=== PATIENT | male | born 1985 | race Caucasian/White ===

== ENCOUNTER 2019-03-20 14:07 | Outpatient (CLI) | payer MEDICAID | END 2019-03-20 14:08 | disposition critical access hospital (66) | LOC: EMS 14:07 | PROVIDERS: ATTEND Surgery | DX: R10.10 Upper abdominal pain, unspecified (principal); R11.2 Nausea with vomiting, unspecified | CPT/HCPCS: A0425; A0427 ==

== ENCOUNTER 2019-03-20 14:24 | Observation (INO) | payer MEDICAID ==
--- NOTE | 2019-03-20 14:39 | ED Physician Documentation ---
PD HPI ABD PAIN - Stated complaint Stated Complaint: ABD PX - Chief complaint Chief Complaint: Abd Pain - History obtained from History obtained from: Patient - History of Present Illness Timing - onset: How many days ago (4-5) Timing - duration: Days (The patient states he has had epigastric pain over the last for 5 days worsened with eating and improved with some antacids. He had had similar type symptoms mildly in the past before that with some reflux and heartburn occasionally. He states his symptoms were much more consistent the last for 5 days. He had drank some alcohol heavily over the weekend prior to this starting. He denies any regular or daily alcohol use. He is mild caffeine drinker. He does not eat much spicy foods. He had had some decrease in the e pigastric pain and nausea yesterday and then had an abrupt worsening of pain with nausea and feeling of abdominal distention today. He denies any diarrhea. He denies any hematemesis nor melena.) Timing - details: Gradual onset, Still present (much worse today), Waxing and waning Quality: Aching, Sharp, Fullness/distended, Pain Location: Epigastric Radiation: Upper back Improved by: Vomiting, Position (upright) Worsened by: Eating, Palpation. No: Breathing Associated symptoms: Nausea, Vomiting. No: Fever, Hematemesis, Diarrhea, Melena Similar symptoms before: No diagnosis (Has heartburn symptoms intermittently in the past. No formal diagnosis. Uses ranitidine periodically.) Recently seen: Not recently seen Review of Systems Constitutional: denies: Fever, Chills, Myalgias Nose: denies: Rhinorrhea / runny nose, Congestion Throat: denies: Sore throat Cardiac: denies: Chest pain / pressure Respiratory: denies: Cough GI: reports: Abdominal Pain, Abdominal Swelling (today), Nausea, Vomiting. den ies: Diarrhea, Hematemesis, Bloody / black stool : denies: Dysuria, Frequency Neurologic: reports: Generalized weakness. denies: Near syncope, Syncope Endocrine: denies: Weight loss, Easy bruising / bleeding PD PAST MEDICAL HISTORY - Past Medical History Cardiovascular: None Respiratory: None Neuro: None Endocrine/Autoimmune: None - Past Surgical History Past Surgical History: No - Present Medications Home Medications: Ambulatory Orders Medication Instructions Recorded Confirmed No Known Home Medications 03/20/19 03/20/19 - Allergies Allergies/Adverse Reactions: Allergies Allergy/AdvReac Type Severity Reaction Status Date / Time No Known Drug Allergies Allergy Verified 03/20/19 14:29 - Social History Does the pt smoke?: No Does the pt drink ETOH?: Yes ETOH Use: Other (occasional use, not daily/regular) Substance Use and Type: Marijuana PD ED PE NORMAL - Vitals Vital signs reviewed: Yes - General General: Alert and oriented X 3, Well developed/nourished, Other (He is in significant distress with abdominal pain feeling of distention. He is holding an emesis bag with some emesis in it which is slightly bilious in color and does not have any coffee-ground or bloody appearance) - HEENT HEENT: Atraumatic, Moist mucous membranes, Pharynx benign - Neck Neck: Supple, no meningeal sign, No adenopathy - Cardiac Cardiac: RRR, No murmur - Respiratory Respiratory: Clear bilaterally - Abdomen Abdomen: Soft, No organomegaly, Other (His abdomen is moderately distended with marked tenderness in the epigastric area. He is not particularly tender in the right upper quadrant per se. The lower abdomen is nontender. There is some mild percussion tenderness in the upper abdomen. Bowel sounds are present and diminished. He does have emesis in an emesis bag here in the department and it does not have any blood to it.) - Male Male : Deferred - Rectal Rectal: Deferred Results - Vitals Vitals: Vital Signs - 24 hr 03/20/19 03/20/19 14:26 16:53 Temperature 37.3 C Heart Rate 71 59 L Respiratory 14 16 Rate Blood Pressure 164/96 H 178/112 H O2 Saturation 100 100 Oxygen O2 Source Room air - Labs Labs: Laboratory Tests 03/20/19 03/20/19 03/20/19 15:06 15:06 15:06 WBC 10.6 RBC 4.88 Hgb 15.4 Hct 43.6 MCV 89.3 MCH 31.6 H MCHC 35.3 RDW 11.6 L Plt Count 213 MPV 8.8 Neut # (Auto) 9.0 H Lymph # (Auto) 0.9 L [place] # (Auto) 0.5 Eos # (Auto) 0.0 Baso # (Auto) 0.1 Absolute Nucleated RBC 0.00 Nucleated RBC % 0.0 Sodium 139 Potassium 3.4 L Chloride 99 L Carbon Dioxide 23 Anion Gap 17.0 H BUN 11 Creatinine 1.0 Estimated GFR (MDRD) 87 L Glucose 140 H Lactic Acid 1.8 Calcium 9.1 Magnesium 2.1 Total Bilirubin 1.5 H AST 41 ALT 47 Alkaline Phosphatase 63 Total Protein 7.4 Albumin 4.8 Globulin 2.6 Albumin/Globulin Ratio 1.8 Lipase 580 H Ethyl Alcohol < 5.0 - Rads (name of study) abd CT Radiology: Prelim report reviewed (Pancreatic inflammation. No signs of gallbladder abnormality. No free air or free fluid.), See rad report PD MEDICAL DECISION MAKING - ED course Complexity details: considered differential (He denies regular alcohol use at this time. He had binge drinking about 5 days ago with symptom onset 4 days ago that sounds consistent with gastritis and pancreatitis. No perforation or free air or free fluid on CT scan. He is having considerable pain and persistent nausea. His lipase is significantly elevated. He will need hospitalization for ongoing treatment), d/w patient Departure - Departure Disposition: ED Place in Observation Clinical Impression: Abdominal pain Qualifiers: Abdominal location: epigastric Qualified Code(s): R10.13 - Epigastric pain Vomiting Qualifiers: Vomiting type: unspecified Vomiting Intractability: non-intractable Nausea presence: with nausea Qualified Code(s): R11.2 - Nausea with vomiting, unspecified Gastritis Qualifiers: Gastritis type: alcoholic Chronicity: acute Gastritis bleeding: without bleeding Qualified Code(s): K29.20 - Alcoholic gastritis without bleeding Pancreatitis, acute Qualifiers: Pancreatitis type: alcohol induced Acute pancreatitis complication: no infection or necrosis Qualified Code(s): K85.20 - Alcohol induced acute pancreatitis without necrosis or infection Condition: Stable Record reviewed to determine appropriate education?: Yes
[2019-03-20] MEDS ORDERED: ONDANSETRON 4 MG/2 ML VIAL IVP STA (14:53)
[2019-03-20] MEDS ORDERED: FAMOTIDINE 20 MG/2 ML VIAL IVP STA (14:53)
[2019-03-20] MEDS ORDERED: SODIUM CHLORIDE 0.9% 1,000 ML IV ONE ×2 (14:53→16:42)
[2019-03-20] MEDS ORDERED: HYDROmorphone 1 MG/ML CARPUJECT IVP STA ×2 (14:54→16:42)
[2019-03-20] MEDS ORDERED: IOVERSOL 320 100 ML VIAL IVP ONE ×2 (14:58→16:02)
[2019-03-20 15:11] LABS: BASOPHILS # (AUTO) 0.1 10^3/uL (0.0-0.1); BASOPHILS % (AUTO) 0.5 %; EOSINOPHILS % (AUTO) 0.2 %; HGB - HEMOGLOBIN 15.4 g/dL (14.0-18.0); LYMPHOCYTES # (AUTO) 0.9 10^3/uL (1.5-3.5); LYMPHOCYTES % (AUTO) 8.8 %; MEAN CORPUSCULAR HEMOGLOBIN 31.6 pg (27.0-31.0); MEAN CORPUSCULAR HGB CONC 35.3 g/dL (32.0-36.0); MEAN CORPUSCULAR VOLUME 89.3 fL (80.0-94.0); MEAN PLATELET VOLUME 8.8 fL (7.4-11.4); MONOCYTES # (AUTO) 0.5 10^3/uL (0.0-1.0); MONOCYTES % (AUTO) 4.8 %; NEUTROPHILS % (AUTO) 85.4 %; PLT - PLATELET COUNT 213 10^3/uL (130-450); RED BLOOD COUNT 4.88 10^6/uL (4.70-6.10); RED CELL DISTRIBUTION WIDTH 11.6 % (12.0-15.0); WHITE BLOOD COUNT 10.6 x10^3/uL (4.8-10.8)
[2019-03-20 15:41] LABS: ALBUMIN 4.8 g/dL (3.2-5.5); ALBUMIN/GLOBULIN RATIO 1.8 (1.0-2.2); ALKALINE PHOSPHATASE 63 IU/L (42-121); ALT ALANINE AMINOTRANSFERASE 47 IU/L (10-60); AST ASPARTATE AMINOTRANSFERASE 41 IU/L (10-42); BILIRUBIN,TOTAL 1.5 mg/dL (0.2-1.0); BUN - BLOOD UREA NITROGEN 11 mg/dL (6-20); CALCIUM 9.1 mg/dL (8.5-10.3); CARBON DIOXIDE - CO2 23 mmol/L (21-32); CHLORIDE 99 mmol/L (101-111); GFR - MDRD 87 (>89); GLUCOSE 140 mg/dL (70-100); LIPASE 580 U/L (22-51); MAGNESIUM 2.1 mg/dL (1.7-2.8); SODIUM 139 mmol/L (135-145); TOTAL PROTEIN 7.4 g/dL (6.7-8.2)
--- NOTE | 2019-03-20 16:27 | CT Report ---
Reason: upper abd pain; distension Procedure Date: 03/20/2019 Accession Number: [id number] / [id number] Procedure: CT - Abdomen/Pelvis W CPT Code: Final Report FULL RESULT: EXAM: CT ABDOMEN AND PELVIS EXAM DATE: 03/20/2019 04:00 PM. CLINICAL HISTORY: Upper abdomen pain. Distension. COMPARISONS: None. TECHNIQUE: Routine helical CT imaging was performed through the abdomen and pelvis. IV contrast: 100 cc of Optiray 320. Enteric contrast: No. Reconstructions: Coronal and sagittal. In accordance with CT protocol optimization, one or more of the following dose reduction techniques were utilized for this exam: automated exposure control, adjustment of mA and/or KV based on patient size, or use of iterative reconstructive technique. FINDINGS: Lung Bases: Unremarkable. Liver: Diffuse low density. Gallbladder/Bile Ducts: Unremarkable. Spleen: Normal. Pancreas: Mild diffuse peripancreatic fat stranding. Adrenal Glands: Normal. Kidneys: Normal. No masses or hydronephrosis. Peritoneal Cavity/Bowel: Diverticulosis. No free fluid, free air or adenopathy. No masses or acute inflammatory process. The appendix is well visualized and normal. Pelvic Organs: Normal. The bladder and visualized pelvic organs are within normal limits. Vasculature: No aneurysms or other significant abnormality. Bones: No significant abnormality. Other: None. IMPRESSION: 1. Mild diffuse peripancreatic fat stranding compatible with acute pancreatitis. 2. Hepatic steatosis. 3. Diverticulosis without diverticulitis. RADIA
[2019-03-20] MEDS ORDERED: SODIUM CHLORIDE FLUSH 0.9% 10 ML SYRINGE IVP PRN (17:04)
[2019-03-20] MEDS ORDERED: ZOLPIDEM 5 MG TABLET PO PRN (17:04)
[2019-03-20] MEDS ORDERED: ACETAMINOPHEN 325 MG TABLET PO PRN (17:04)
--- NOTE | 2019-03-20 17:12 | HISTORY & PHYSICAL EXAMINATION ---
Chief Complaint - Chief Complaint Chief Complaint: abdominal pain History of Present Illness - History of Present Illness HPI Comment/Other: This is a 33-yrs-old male with a PMH significant for alcohol abuse, GERD, current cigarette smoker who present ER complain of abdominal pain, nausea, vomiting. he report his last alcohol drinking is on this Sunday. He report since his last drinking of alcohol, his pigastric pain has been over the last for 4 days and worsened with eating. He had heavily drank over this weekend. He denies any regular or daily alcohol use.he report he had an abrupt worsening of pain with nausea and feeling of abdominal distention also today. He denies chest pain, fever, chill, shortness of breath, diarrhea, hematemesis nor melena. pt's Lipase is 500. CT of abdomen indicate acute pancreatitis. pt is admitted for acute pancreatitis. pt asked for full code History - Past Medical History Cardiovascular: reports: None Respiratory: reports: None Neuro: reports: None Endocrine/Autoimmune: reports: None MRSA Hx?: No - Family & Social History Family History: Mother: Alive and Well, CAD, Father: , Cancer Family History Comment/Other: pt report his father from non-smoker lung cancer, his mother is alive with hx of HTN. Social History Notes: pt report he is living with his at [place]. he is still cigarett smoker and alcohol drinker, he denies drug abuse. - POLST Patient has POLST: No Meds/Allgy - Home Medications Home Medications: Ambulatory Orders Medication Instructions Recorded Confirmed No Known Home Medications 03/20/19 03/20/19 - Allergies Allergies/Adverse Reactions: Allergies Allergy/AdvReac Type Severity Reaction Status Date / Time No Known Drug Allergies Allergy Verified 03/20/19 14:29 Review of Systems - Constitutional Constitutional: denies: Fatigue, Fever, Chills, Malaise, Weakness, Poor appetite, Diaphoresis, Night sweats - Eyes Eyes: denies: Pain, Irritation, Amaurosis, Blurred vision, Spots in vision, Field loss, Vision loss, Dipolpia - Ears, Nose & Throat Ears, Nose & Throat: denies: Ear pain, Hearing aids, Tinnitus, Nasal pain, Nasal discharge, Nosebleeds, Nasal obstruction, Nasal congestion, Postnasal drainage, Sore throat, Hoarseness, Mouth lesions, Bleeding gums - Cardiovascular Cariovascular: denies: Irregular heart rate, Palpitations, Chest pain, Edema, Lightheadedness, Syncope, Exertional dyspnea, Decr. exercise tolerance - Respiratory Respiratory: denies: Cough, Sputum production, Wheezing, Snoring, Hemoptysis, Orthopnea, SOB at rest, SOB with exertion - Gastrointestinal Gastrointestinal: reports: Abdominal pain, Nausea, Vomiting. denies: Abdominal distention, Constipation, Diarrhea, Change in bowel habits, Rectal bleeding, Black stools, Bloody stools, Bile emesis, Bakari blood emesis, Coffee grounds emesis, Reflux/heartburn - Genitourinary Genitourinary: denies: Dysuria, Frequency, Urgency, Hematuria, Incontinence, Flank pain, Nocturia, Urethral discharge - Musculoskeletal Musculoskeletal: denies: Muscle pain, Back pain, Muscle aches, Stiffness, Limited range of motion, Muscle weakness, Gout, Joint pain - Integumentary Integumentary: denies: Rash, Pruritis, Lesions, Dryness, Lumps, Acne, Pigment changes, Nail changes - Neurological Neurological: denies: General weakness, Focal weakness, Headache, Dizziness, Numbness, Memory problems, Pre-existing deficit, Abnormal gait, Seizures, Incoordination, Slurred speech - Psychiatric Psychiatric: denies: Depression, Anxiety, Suicidal, Delusions, Hallucinations, Homicidal - Endocrine Endocrine: denies: Polyuria, Polydypsia, Polyphagia, Intolerance to cold - Hematologic/Lymphatic Hematologic/Lymphatic: denies: Anemia, Bruising, Petechiae, Blood clots, Lymphadenopathy, Bleeding tendencies, Recurrent infections Exam - Vital Signs Vital Signs: Vital Signs x48h Temp Pulse Resp BP Pulse Ox 03/20/19 16:53 59 L 16 178/112 H 100 03/20/19 14:26 37.3 C 71 14 164/96 H 100 - Physical Exam General Appearance: positive: No acute distress, Alert. negative: Lethargic Eyes Bilateral: positive: Normal inspection, PERRL, EOMI, No lid inflammation ENT: positive: ENT inspection nml, Pharynx nml, No signs of dehydration. negative: Purulent nasal drainage, Dry mucous membranes Neck: positive: Nml inspection, Thyroid nml, No JVD, Trachea midline. negative: Thyromegaly, Lymphadenopathy (R), Lymphadenopathy (L), Stiff neck, Swelling/bruising, Tracheal deviation Respiratory: positive: Chest non-tender, No respiratory distress, Breath sounds nml. negative: Wheezes, Rales, Rhonchi Cardiovascular: positive: Regular rate & rhythm, No murmur, No gallop. negat anita: Irregularly irregular, Extrasystoles, Tachycardia, Bradycardia, JVD present, Systolic murmur, Diastolic murmur Peripheral Pulses: positive: 2+ Abdomen: positive: Non-tender, No organomegaly, Nml bowel sounds, No distention. negative: Tenderness, Guarding, Rebound Back: positive: Nml inspection. negative: CVA tenderness (R), CVA tenderness (L) Skin: positive: Color nml, No rash, Warm, Dry. negative: Cyanosis, Diaphoresis, Pallor, Skin rash Extremities: positive: Non-tender, Full ROM, Nml appearance. negative: Calf tenderness, Bridget's sign/cords Neurologic/Psychiatric: positive: Oriented x3, Motor nml, Sensation nml, Mood/affect nml. negative: Weakness, Sensory loss, Facial droop, Slurred/abnml speech, Depressed mood/affect Sepsis Event Note (H) - Evaluation Current Stage of Sepsis: Ruled out Conclusion/Plan - Problem List (1) Pancreatitis, acute Conclusion/Plan: Lipase is elevated to 500, CT of abdomen reveals acute pancreatitis. pt's abdominal pain is after he heavily drink alcohol. NPO for bowel rest IVF of NS check lipase and lab monitor Nile's scale is 0 Qualifiers: Pancreatitis type: alcohol induced Acute pancreatitis complication: no infection or necrosis Qualified Code(s): K85.20 - Alcohol induced acute pancreatitis without necrosis or infection (2) GERD (gastroesophageal reflux disease) Conclusion/Plan: pt has hx of GERD. add Protonix IV, and PRN of Tums (3) HTN (hypertension) Conclusion/Plan: pt has slight elevated BP, he has no home BP, it can be caused his abdominal pain. add hydralazine PRN (4) Alcohol abuse Conclusion/Plan: pt report he used heavy alcohol but denies regular used add CIWA, nurse closely monitor add and B1 (5) Hypokalemia Conclusion/Plan: K is 3.4, replacement of potassium, lab monitor (6) Current smoker Conclusion/Plan: pt report he is cigarette smoker but decline Nicotin patch - Lab Results Fish Bones: 03/20/19 15:06 03/20/19 15:06 Core Measures - Anticipated LOS I expect patient to be DC'd or transferred within 96 hours.: Yes - DVT/VTE - Prophylaxis VTE/DVT Device ordered at admit?: Yes VTE/DVT Prophylaxis med ordered at admit?: Yes
[2019-03-20] MEDS ORDERED: POTASSIUM CHLORIDE 20 MEQ TABLET PO ONE (18:25)
[2019-03-20] MEDS ORDERED: hydrALAZINE INJ 20 MG/ML VIAL IVP PRN (18:37)
[2019-03-20] MEDS: PANTOPRAZOLE 40 MG VIAL IVP SCH (18:47)
[2019-03-20] MEDS: SODIUM CHLORIDE 0.9% 1,000 ML IV SCH (18:47)
[2019-03-20] MEDS: ONDANSETRON 4 MG/2 ML VIAL IVP PRN (18:49)
[2019-03-20] MEDS: POTASSIUM CHLOR 10 MEQ/100 ML 10 MEQ/100 ML BAG IV SCH ×2 (19:05→20:05)
[2019-03-20] MEDS: PRENATAL VITAMIN TABLET PO SCH ×2 (19:08→21:37)
[2019-03-20] MEDS: HYDROmorphone 1 MG/ML CARPUJECT IVP PRN ×3 (19:11→23:18)
[2019-03-20] MEDS ORDERED: CALCIUM CARBONATE CHEW 500 MG TABLET PO SCH (21:00)
[2019-03-20 21:40] LABS: MUDS CUTOFF CONCENTRATIONS CUTOFF CONC BELOW:
[2019-03-20 21:49] LABS: AMPHETAMINE SCREEN,URINE NEGATIVE (NEGATIVE); BENZODIAZEPINES SCREEN, URINE NEGATIVE (NEGATIVE); COCAINE SCREEN URINE NEGATIVE (NEGATIVE); METHADONE SCREEN, URINE NEGATIVE (NEGATIVE); METHAMPHETAMINES SCREEN, URINE NEGATIVE (NEGATIVE); OPIATE SCREEN, URINE POSITIVE (NEGATIVE); OXYCODONE SCREEN, URINE NEGATIVE (NEGATIVE); PROPOXYPHENE SCREEN, URINE NEGATIVE (NEGATIVE); TRICYCLIC ANTIDEPRESSANT,URINE NEGATIVE (NEGATIVE)
[2019-03-21] MEDS: ONDANSETRON 4 MG/2 ML VIAL IVP PRN (01:26)
[2019-03-21] MEDS: HYDROmorphone 1 MG/ML CARPUJECT IVP PRN ×5 (01:27→09:25)
[2019-03-21] MEDS: SODIUM CHLORIDE 0.9% 1,000 ML IV SCH ×4 (01:33→23:39)
[2019-03-21] MEDS: SODIUM CHLORIDE FLUSH 0.9% 10 ML SYRINGE IVP SCH ×3 (03:56→16:18)
[2019-03-21] MEDS: PANTOPRAZOLE 40 MG VIAL IVP SCH (05:20)
[2019-03-21 05:32] LABS: BASOPHILS % (AUTO) 0.3 %; EOSINOPHILS % (AUTO) 0.2 %; HGB - HEMOGLOBIN 14.4 g/dL (14.0-18.0); LYMPHOCYTES # (AUTO) 1.2 10^3/uL (1.5-3.5); LYMPHOCYTES % (AUTO) 10.2 %; MEAN CORPUSCULAR HEMOGLOBIN 31.3 pg (27.0-31.0); MEAN CORPUSCULAR HGB CONC 34.4 g/dL (32.0-36.0); MEAN CORPUSCULAR VOLUME 90.9 fL (80.0-94.0); MEAN PLATELET VOLUME 9.6 fL (7.4-11.4); MONOCYTES # (AUTO) 0.7 10^3/uL (0.0-1.0); MONOCYTES % (AUTO) 6.3 %; NEUTROPHILS # (AUTO) 9.3 10^3/uL (1.5-6.6); NEUTROPHILS % (AUTO) 82.6 %; PLT - PLATELET COUNT 183 10^3/uL (130-450); RED CELL DISTRIBUTION WIDTH 11.6 % (12.0-15.0); WHITE BLOOD COUNT 11.3 x10^3/uL (4.8-10.8)
[2019-03-21 05:43] LABS: ALBUMIN 4.1 g/dL (3.2-5.5); ALBUMIN/GLOBULIN RATIO 1.6 (1.0-2.2); CALCIUM 8.4 mg/dL (8.5-10.3); CREATININE 0.8 mg/dL (0.6-1.2); MAGNESIUM 2.1 mg/dL (1.7-2.8); TOTAL PROTEIN 6.6 g/dL (6.7-8.2)
[2019-03-21] MEDS ORDERED: PANTOPRAZOLE 40 MG TABLET PO SCH (07:00)
--- NOTE | 2019-03-21 08:34 | XRAY Report ---
Reason: sob Procedure Date: 03/21/2019 Accession Number: [id number] / [id number] Procedure: XR - Chest 1 View X-Ray CPT Code: 90023 Final Report FULL RESULT: EXAM: CHEST RADIOGRAPHY EXAM DATE: 03/21/2019 07:51 AM. CLINICAL HISTORY: Sob. COMPARISON: None. TECHNIQUE: 1 view. FINDINGS: Lungs/Pleura: Lungs without infiltrate. Negative for pleural fluid. Upper lung pulmonary veins are prominent. Mediastinum: Heart size is normal. There is no pleural fluid identified. Other: None. IMPRESSION: Negative for active cardiopulmonary process. RADIA
[2019-03-21] MEDS: PRENATAL VITAMIN TABLET PO SCH (09:29)
[2019-03-21] MEDS: THIAMINE 100 MG TABLET PO SCH (09:29)
[2019-03-21 10:10] LABS: GLUCOSE, URINE (UA) NEGATIVE (NEGATIVE); KETONES,URINE (UA) >=80 mg/dL (NEGATIVE); LEUKOCYTE ESTERASE, URINE NEGATIVE (NEGATIVE); NITRITE,URINE NEGATIVE (NEGATIVE); OCCULT BLOOD,URINE TRACE-LYSE (NEGATIVE); PROTEIN,URINE NEGATIVE (NEGATIVE); UROBILINOGEN,URINE 0.2 (NORMAL) E.U./dL (NORMAL)
[2019-03-21 10:16] LABS: BILIRUBIN,URINE NEGATIVE (NEGATIVE); CLARITY,URINE CLEAR (CLEAR); ICTOTEST,URINE NEGATIVE
[2019-03-21 10:20] LABS: BACTERIA,URINE None Seen /HPF (None Seen); RBC,URINE 0-5 /HPF (0-5); SQUAMOUS EPITHELIAL CELL,UR NONE SEEN (<= Few)
--- NOTE | 2019-03-21 12:48 | PROVIDER PROGRESS NOTE ---
Assessment/Plan - Problem List (1) Pancreatitis, acute Qualifiers: Pancreatitis type: alcohol induced Acute pancreatitis complication: no infection or necrosis Qualified Code(s): K85.20 - Alcohol induced acute pancreatitis without necrosis or infection Assessment/Plan: 03/21 pt report he still has significant abdominal pain, and nausea. but this afternoon pt report his abdominal pain is better, he request d/c IV of Dilaudid and change to PO pain meds, and pt tolerate clear diet. pt's Lipase is down to 289 from 500. advance his diet to full lipid diet. continue IVF Lipase is elevated to 500, CT of abdomen reveals acute pancreatitis. pt's abdominal pain is after he heavily drink alcohol. NPO for bowel rest IVF of NS check lipase and lab monitor Lavon's scale is 0 (2) GERD (gastroesophageal reflux disease) Conclusion/Plan: pt has hx of GERD. add Protonix IV, and PRN of Tums (3) HTN (hypertension) Conclusion/Plan: 03/21 stable pt has slight elevated BP, he has no home BP, it can be caused his abdominal pain. add hydralazine PRN (4) Alcohol abuse Conclusion/Plan: pt report he used heavy alcohol but denies regular used add CIWA, nurse closely monitor add and B1 (5) Hypokalemia Conclusion/Plan: 03/21 resolved K is 3.4, replacement of potassium, lab monitor (6) Current smoker Conclusion/Plan: pt report he is cigarette smoker but decline Nicotin patch - Current Meds Current Meds: Current Medications Generic Name Dose Route Start Last Admin Trade Name Freq PRN Reason Stop Dose Admin Sodium Chloride 1,000 mls @ 125 mls/hr 03/21/19 07:30 03/21/19 08:18 Normal Saline 0.9% IV 125 mls/hr .Q8H GIOVANI Administration Ondansetron HCl 4 mg 03/20/19 17:04 03/21/19 01:26 Zofran Inj IVP 4 mg Q6HR PRN Administration Nausea / Vomiting Pantoprazole Sodium 40 mg 03/20/19 18:00 03/21/19 05:20 Protonix IVP 40 mg QDAC GIOVANI Administration Multivit/Folic Acid/Iron 1 tab 03/20/19 19:00 03/21/19 09:29 Trinatal Rx 1 PO Not Given DAILYWM GIOVANI Sodium Chloride 10 ml 03/20/19 17:04 03/21/19 05:20 Normal Saline Flush 0.9% IVP 10 ml PRN PRN Administration NEEDED PER PROVIDER ORDERS Sodium Chloride 10 ml 03/21/19 01:00 03/21/19 03:56 Normal Saline Flush 0.9% IVP Not Given 0100,0900,1700 GIOVANI Thiamine HCl 100 mg 03/21/19 09:00 03/21/19 09:29 Vitamin B-1 PO Not Given DAILY GIOVANI - Lab Result Fish Bone Diagrams: 03/21/19 04:30 03/21/19 04:30 - Additional Planning My Orders: My Active Orders 03/20/19 17:04 Activity Orders [RC] Q2HR IO [RC] IOSHIFT Initiate Bowel Care Protocol [RC] .protocol Initiate Line Care Protocol [RC] QSHIFT Initiate Personal Care Protoco [RC] .protocol Oxygen Therapy [RC] Routine Telemetry- [RC] Q4HR Vital Signs [RC] 0800,1600,0000 Acetaminophen [Tylenol] 650 mg PO Q4HR PRN Ondansetron Inj [Zofran Inj] 4 mg IVP Q6HR PRN Sodium Chloride Flush 0.9% [Normal Saline Flush 0.9%] 10 ml IVP PRN PRN Zolpidem [Ambien] 5 mg PO QPM PRN Code Status [OTHERS] Routine Condition of Patient [OTHERS] Routine DVT Prophylaxis [OTHERS] Routine 03/20/19 17:07 SCDs [RC] QSHIFT 03/20/19 17:09 Accucheck [Blood Glucose POC] [RC] 0800,1200,1700,2100 03/20/19 18:00 Pantoprazole [Protonix] 40 mg IVP QDAC 03/20/19 18:24 CIWA - AR Score Card [RC] Routine Routine Neuro Check [RC] Routine Routine 03/20/19 18:37 hydrALAZINE INJ [Apresoline Inj] 10 mg IVP QID PRN 03/20/19 19:00 Vitamin [Trinatal Rx 1] 1 tab PO DAILYWM 03/21/19 01:00 Sodium Chloride Flush 0.9% [Normal Saline Flush 0.9%] 10 ml IVP 0100,0900,1700 03/21/19 07:30 Sodium Chloride 0.9% [Normal Saline 0.9%] 1,000 ml IV 125 mls/hr 03/21/19 09:00 Thiamine [Vitamin B-1] 100 mg PO DAILY 03/21/19 12:44 oxyCODONE [Roxicodone] 5 mg PO Q4HR PRN 03/21/19 Dinner Full Liquid Diet [DIET] 03/22/19 05:00 CBC - COMP BLD CT W/AUTO DIFF [HEME] DAILYLAB CMP [COMPREHENSIVE METABOLIC PANEL] [CHEM] DAILYLAB LIPASE [CHEM] DAILYLAB 03/23/19 05:00 CBC - COMP BLD CT W/AUTO DIFF [HEME] DAILYLAB CMP [COMPREHENSIVE METABOLIC PANEL] [CHEM] DAILYLAB LIPASE [CHEM] DAILYLAB 03/24/19 05:00 CBC - COMP BLD CT W/AUTO DIFF [HEME] DAILYLAB CMP [COMPREHENSIVE METABOLIC PANEL] [CHEM] DAILYLAB LIPASE [CHEM] DAILYLAB Subjective - Subjective Patient Reports: Feeling Better Objective Vital Signs: Vital Signs - 24 hr 03/20/19 03/20/19 03/20/19 14:26 16:53 17:54 Temperature 37.3 C 37.1 C Heart Rate 71 59 L Heart Rate [ 66 Brachial] Respiratory 14 16 22 Rate Blood Pressure 164/96 H 178/112 H Blood Pressure 158/85 H [Right Brachial artery] O2 Saturation 100 100 100 03/20/19 03/20/19 03/20/19 20:55 20:56 23:47 Temperature 37 C 37.1 C 37.0 C Heart Rate 72 Heart Rate [ 72 61 Brachial] Respiratory 20 20 18 Rate Blood Pressure Blood Pressure 154/82 H 163/101 H [Right Brachial artery] O2 Saturation 100 100 96 03/21/19 03/21/19 03/21/19 01:37 04:30 08:00 Temperature 37.3 C 37.2 C Heart Rate Heart Rate [ 58 L 70 78 Brachial] Respiratory 16 17 Rate Blood Pressure Blood Pressure 158/103 H 161/94 H 168/88 H [Right Brachial artery] O2 Saturation 97 95 03/21/19 09:42 Temperature Heart Rate Heart Rate [ 72 Brachial] Respiratory Rate Blood Pressure Blood Pressure 152/92 H [Right Brachial artery] O2 Saturation Oxygen O2 Source Room air I&O (Last 24 Hrs): Intake and Output Totals x24h 03/19/19 03/20/19 03/21/19 23:59 23:59 23:59 Intake Total 2100 2000 Output Total 200 1225 Balance 1900 775 General: Alert, Oriented x3, No acute distress HEENT: Atraumatic Neck: Supple Lymphatic: no adenopathy Neuro: Alert, Non Focal, Oriented Times 3 Cardiovascular: Regular rate, Normal S1, Normal S2 Respiratory: Chest non-tender, No respiratory distress, Breath sounds nml Abdomen: Normal bowel sounds, Soft, No tenderness Extremities: No edema, Normal pulses - Results Results: Laboratory Results WBC 11.3 x10^3/uL (4.8-10.8) H 03/21/19 04:30 RBC 4.60 10^6/uL (4.70-6.10) L 03/21/19 04:30 Hgb 14.4 g/dL (14.0-18.0) 03/21/19 04:30 Hct 41.8 % (42.0-52.0) L 03/21/19 04:30 MCV 90.9 fL (80.0-94.0) 03/21/19 04:30 MCH 31.3 pg (27.0-31.0) H 03/21/19 04:30 MCHC 34.4 g/dL (32.0-36.0) 03/21/19 04:30 RDW 11.6 % (12.0-15.0) L 03/21/19 04:30 Plt Count 183 10^3/uL (130-450) 03/21/19 04:30 MPV 9.6 fL (7.4-11.4) 03/21/19 04:30 Neut # (Auto) 9.3 10^3/uL (1.5-6.6) H 03/21/19 04:30 Lymph # (Auto) 1.2 10^3/uL (1.5-3.5) L 03/21/19 04:30 [place] # (Auto) 0.7 10^3/uL (0.0-1.0) 03/21/19 04:30 Eos # (Auto) 0.0 10^3/uL (0.0-0.7) 03/21/19 04:30 Baso # (Auto) 0.0 10^3/uL (0.0-0.1) 03/21/19 04:30 Absolute Nucleated RBC 0.00 x10^3/uL 03/21/19 04:30 Nucleated RBC % 0.0 /100WBC 03/21/19 04:30 Sodium 139 mmol/L (135-145) 03/21/19 04:30 Potassium 3.7 mmol/L (3.5-5.0) 03/21/19 04:30 Chloride 105 mmol/L (101-111) 03/21/19 04:30 Carbon Dioxide 21 mmol/L (21-32) 03/21/19 04:30 Anion Gap 13.0 (6-13) 03/21/19 04:30 BUN 7 mg/dL (6-20) 03/21/19 04:30 Creatinine 0.8 mg/dL (0.6-1.2) 03/21/19 04:30 Estimated GFR (MDRD) 112 (>89) 03/21/19 04:30 Glucose 133 mg/dL (70-100) H 03/21/19 04:30 POC Whole Bld Glucose 113 mg/dL (70 - 100) H 03/21/19 11:46 Lactic Acid 1.8 mmol/L (0.5-2.2) 03/20/19 15:06 Calcium 8.4 mg/dL (8.5-10.3) L 03/21/19 04:30 Magnesium 2.1 mg/dL (1.7-2.8) 03/21/19 04:30 Total Bilirubin 1.0 mg/dL (0.2-1.0) 03/21/19 04:30 AST 23 IU/L (10-42) 03/21/19 04:30 ALT 35 IU/L (10-60) 03/21/19 04:30 Alkaline Phosphatase 53 IU/L (42-121) 03/21/19 04:30 Total Protein 6.6 g/dL (6.7-8.2) L 03/21/19 04:30 Albumin 4.1 g/dL (3.2-5.5) 03/21/19 04:30 Globulin 2.5 g/dL (2.1-4.2) 03/21/19 04:30 Albumin/Globulin Ratio 1.6 (1.0-2.2) 03/21/19 04:30 Lipase 289 U/L (22-51) H 03/21/19 04:30 Urine Color YELLOW 03/21/19 10:00 Urine Clarity CLEAR (CLEAR) 03/21/19 10:00 Urine pH 6.0 PH (5.0-7.5) 03/21/19 10:00 Ur Specific [place] 1.020 (1.002-1.030) 03/21/19 10:00 Urine Protein NEGATIVE mg/dL (NEGATIVE) 03/21/19 10:00 Urine Glucose (UA) NEGATIVE mg/dL (NEGATIVE) 03/21/19 10:00 Urine Ketones >=80 mg/dL (NEGATIVE) H 03/21/19 10:00 Urine Occult Blood TRACE-LYSE (NEGATIVE) 03/21/19 10:00 Urine Nitrite NEGATIVE (NEGATIVE) 03/21/19 10:00 Urine Bilirubin NEGATIVE (NEGATIVE) 03/21/19 10:00 Urine Urobilinogen 0.2 (NORMAL) E.U./dL (NORMAL) 03/21/19 10:00 Ur Leukocyte Esterase NEGATIVE (NEGATIVE) 03/21/19 10:00 Urine RBC 0-5 /HPF (0-5) 03/21/19 10:00 Urine WBC 0-3 /HPF (0-3) 03/21/19 10:00 Ur Squamous Epith Cells NONE SEEN (<= Few) 03/21/19 10:00 Urine Bacteria None Seen /HPF (None Seen) 03/21/19 10:00 Urine Culture Comments NOT INDICATED 03/21/19 10:00 Urine Opiates Screen POSITIVE (NEGATIVE) H 03/20/19 20:20 Ur Oxycodone Screen NEGATIVE (NEGATIVE) 03/20/19 20:20 Urine Methadone Screen NEGATIVE (NEGATIVE) 03/20/19 20:20 Ur Propoxyphene Screen NEGATIVE (NEGATIVE) 03/20/19 20:20 Ur Barbiturates Screen NEGATIVE (NEGATIVE) 03/20/19 20:20 Ur Tricyclics Screen NEGATIVE (NEGATIVE) 03/20/19 20:20 Ur Phencyclidine Scrn NEGATIVE (NEGATIVE) 03/20/19 20:20 Ur Amphetamine Screen NEGATIVE (NEGATIVE) 03/20/19 20:20 U Methamphetamines Scrn NEGATIVE (NEGATIVE) 03/20/19 20:20 U Benzodiazepines Scrn NEGATIVE (NEGATIVE) 03/20/19 20:20 Urine Cocaine Screen NEGATIVE (NEGATIVE) 03/20/19 20:20 U Cannabinoids Screen NEGATIVE (NEGATIVE) 03/20/19 20:20 Ethyl Alcohol < 5.0 mg/dL 03/20/19 15:06 Sepsis Event Note (H) - Evaluation Current Stage of Sepsis: Ruled out ABX Reporting Has patient been on IV antibiotics over the past 48 hours?: No Current Medications - Current Medications Current Medications: Active Medications Acetaminophen (Tylenol) 650 mg PO Q4HR PRN PRN Reason: Pain 1 to 4 Hydralazine HCl (Apresoline Inj) 10 mg IVP QID PRN PRN Reason: Hypertensive Emergency Sodium Chloride (Normal Saline 0.9%) 1,000 mls @ 125 mls/hr IV .[facility]8H [facility] Last Admin: 03/21/19 08:18 Dose: 125 mls/hr Ondansetron HCl (Zofran Inj) 4 mg IVP Q6HR PRN PRN Reason: Nausea / Vomiting Last Admin: 03/21/19 01:26 Dose: 4 mg Oxycodone HCl (Roxicodone) 5 mg PO Q4HR PRN PRN Reason: PAIN Pantoprazole Sodium (Protonix) 40 mg IVP QDAC [facility] Last Admin: 03/21/19 05:20 Dose: 40 mg Multivit/Folic Acid/Iron (Trinatal Rx 1) 1 tab PO DAILYWM [facility] Last Admin: 03/21/19 09:29 Dose: Not Given Sodium Chloride (Normal Saline Flush 0.9%) 10 ml IVP PRN PRN PRN Reason: NEEDED PER PROVIDER ORDERS Last Admin: 03/21/19 05:20 Dose: 10 ml Sodium Chloride (Normal Saline Flush 0.9%) 10 ml IVP 0100,0900,1700 [facility] Last Admin: 03/21/19 03:56 Dose: Not Given Thiamine HCl (Vitamin B-1) 100 mg PO DAILY [facility] Last Admin: 03/21/19 09:29 Dose: Not Given Zolpidem Tartrate (Ambien) 5 mg PO QPM PRN PRN Reason: Insomnia No Known Home Medications 03/20/19
[2019-03-21] MEDS: oxyCODONE 5 MG TABLET PO PRN ×3 (13:15→22:21)
[2019-03-22] MEDS: SODIUM CHLORIDE FLUSH 0.9% 10 ML SYRINGE IVP SCH (01:00)
[2019-03-22] MEDS: oxyCODONE 5 MG TABLET PO PRN ×3 (03:24→11:29)
[2019-03-22 05:20] LABS: BASOPHILS % (AUTO) 0.3 %; EOSINOPHILS # (AUTO) 0.2 10^3/uL (0.0-0.7); EOSINOPHILS % (AUTO) 1.7 %; HGB - HEMOGLOBIN 14.3 g/dL (14.0-18.0); LYMPHOCYTES # (AUTO) 1.4 10^3/uL (1.5-3.5); LYMPHOCYTES % (AUTO) 15.3 %; MEAN CORPUSCULAR HEMOGLOBIN 32.6 pg (27.0-31.0); MEAN CORPUSCULAR HGB CONC 35.9 g/dL (32.0-36.0); MEAN CORPUSCULAR VOLUME 90.9 fL (80.0-94.0); MEAN PLATELET VOLUME 9.6 fL (7.4-11.4); MONOCYTES # (AUTO) 0.6 10^3/uL (0.0-1.0); MONOCYTES % (AUTO) 6.2 %; NEUTROPHILS # (AUTO) 6.7 10^3/uL (1.5-6.6); NEUTROPHILS % (AUTO) 76.3 %; PLT - PLATELET COUNT 166 10^3/uL (130-450); RED BLOOD COUNT 4.38 10^6/uL (4.70-6.10); RED CELL DISTRIBUTION WIDTH 11.5 % (12.0-15.0); WHITE BLOOD COUNT 8.8 x10^3/uL (4.8-10.8)
[2019-03-22 05:30] LABS: ALBUMIN 3.7 g/dL (3.2-5.5); ALBUMIN/GLOBULIN RATIO 1.3 (1.0-2.2); BILIRUBIN,TOTAL 0.9 mg/dL (0.2-1.0); CALCIUM 8.4 mg/dL (8.5-10.3); CREATININE 0.7 mg/dL (0.6-1.2); TOTAL PROTEIN 6.5 g/dL (6.7-8.2)
[2019-03-22] MEDS: PANTOPRAZOLE 40 MG VIAL IVP SCH (06:09)
[2019-03-22] MEDS: SODIUM CHLORIDE 0.9% 1,000 ML IV SCH (07:41)
[2019-03-22] MEDS: PRENATAL VITAMIN TABLET PO SCH (08:27)
[2019-03-22] MEDS: THIAMINE 100 MG TABLET PO SCH (08:27)
[2019-03-22 08:58] VITALS: BP 138/85
--- NOTE | 2019-03-22 10:34 | Discharge Plan ---
Discharge Plan Problem Reviewed?: Yes Disposition: Home, Self Care Condition: Good Prescriptions: oxyCODONE [Roxicodone] 5 mg PO Q4HR PRN #21 tablet PRN Reason: Pain Diet: Regular Activity Restrictions: Activity as Tolerated Shower Restrictions: No Driving Restrictions: No Weight Bearing: Full Weight Instruction Topics: Oxycodone tablets or capsules, Pancreatitis Health Concerns: Pancreatitis Abdominal pain Lack of primary care provider Plan of Treatment: Continue to rest at home Eat what you can tolerate Do not drink alcohol Establish care with a PCP within one week, [facility] is an idea Care Goals: Prevent this from recurring Prevent hospital stays, or ED visits Assessment: You were admitted for the treatment of acute pancreatitis and your pain was controlled with IV pain medication that was transitioned to oral pain meds. You can have oxycodone for home use. The most likely cause of this episode was due to what was described as "binge drinking" prior to this stay. Your symptoms improved and you were medically stable to return home today. Additional Instructions or Follow Up instructions: I have included your abdominal CT scan showing diverticulosis, and the treatment for this is daily Bene-fiber. The scan also showed a fatty liver, so another reason to avoid alcohol. No Smoking: If you smoke, Please STOP! Call for help.
--- NOTE | 2019-03-22 13:50 | DISCHARGE SUMMARY ---
Discharge Summary Admit Date: 03/20/19 Discharge Date: 03/22/19 Discharging Provider: ANIRUDH Bustos Primary Care Provider: None Code Status: Do Not Attempt Resuscitation Condition at Discharge: Good Discharge Disposition: Home, Self Care - DIAGNOSES Admission Diagnoses: Acute pancreatitis GERD (gastroesophageal reflux disease) HTN (hypertension) Alcohol abuse Hypokalemia Current smoker Discharge Diagnoses with Status of Each Condition: Acute pancreatitis-New on this admit, avoid further alcohol use GERD (gastroesophageal reflux disease)-Chronic, stable HTN (hypertension)-Stabilized upon discharge, no new medications started Abdominal pain-Improved, ongoing, continue oxycodone at home Alcohol abuse-Chronic, avoid further use Hypokalemia-Resolved Current smoker-Encouraged to stop, refused patches Fatty Liver-Informed patient of this finding, avoid drinking Diverticulosis-Informed patient of this finding, daily bene-fiber is the treatment - HPI History of Present Illness: Cheikh Cooley is a 33-year-old male with a past medical history significant for alcohol abuse, GERD, and tobacco dependence. The patient presented to the ER with complaints of abdominal pain, nausea, vomiting & abdominal bloating. He admitted to "binge" drinking about 4 days prior to coming to the ED, and since that time has had progressive sharp, burning mid epi-gastric pain that becomes worse with oral intake. He denied daily drinking or prior dependence. He denied chest pain, fevers, chills, shortness of breath, confusion, diarrhea, hematemesis or melena. Labs show an elevated serum lipase of 500, normal WBC count and no other abnormalities. An abdominal CT showed acute pancreatitis, so the patient was admitted for bowel rest, IVFs, and a social work consult. - HOSPITAL COURSE Hospital Course: The patient was admitted for the treatment of acute pancreatitis and his pain was controlled with IV pain medication that was transitioned to oral pain meds. A prescription was given for oxycodone for home use. The most likely cause of this episode was due to what was described as "binge drinking" prior to this st ay. The patient symptoms improved, he was tolerating a regular diet, and he was medically stable to return home today. - ALLERGIES Allergies/Adverse Reactions: Allergies Allergy/AdvReac Type Severity Reaction Status Date / Time No Known Drug Allergies Allergy Verified 03/20/19 14:29 - MEDICATIONS Home Medications: Ambulatory Orders Medication Instructions Recorded Confirmed oxyCODONE [Roxicodone] 5 mg PO Q4HR PRN #21 tablet 03/22/19 - PHYSICAL EXAM AT DISCHARGE General Appearance: positive: No acute distress, Alert Eyes Bilateral: positive: Normal inspection, PERRL ENT: positive: ENT inspection nml, Pharynx nml, No signs of dehydration Neck: positive: Thyroid nml, No JVD, Trachea midline Respiratory: positive: Chest non-tender, No respiratory distress, Breath sounds nml Cardiovascular: positive: Regular rate & rhythm, No murmur, No gallop Peripheral Pulses: positive: 2+ Abdomen: positive: Non-tender, No organomegaly, Nml bowel sounds Back: positive: Nml inspection Skin: positive: Color nml, No rash, Warm, Dry Extremities: positive: Non-tender, Full ROM, Nml appearance Neurologic/Psychiatric: positive: Oriented x3, CN's nml (2-12), Motor nml, Sensation nml, Depressed mood/affect (flat) Reflexes: Bicep (R): 4+, Bicep (L): 4+, Ankle (R): 4+, Ankle (L): 4+ - LABS Result Diagrams: 03/22/19 04:59 03/22/19 04:59 - SEPSIS Current Stage of Sepsis: Ruled out - FOLLOW UP Follow Up: See your PCP within one week, establish care with a nearby [facility]. A list has been provided. - TIME SPENT Time Spent in Discharge (Minutes): 50
== END 2019-03-22 12:36 | disposition home or self-care (01) ==
LOC: ED 14:24 → MS3 17:04
PROVIDERS: ADMIT Nurse Practitioner Gerontology; ATTEND Nurse Practitioner
DX: K85.20 Alcohol induced acute pancreatitis without necrosis or infection (principal); K29.20 Alcoholic gastritis without bleeding; F10.188 Alcohol abuse with other alcohol-induced disorder; K76.0 Fatty (change of) liver, not elsewhere classified; K21.9 Gastro-esophageal reflux disease without esophagitis; I10 Essential (primary) hypertension; E87.6 Hypokalemia; K57.30 Diverticulosis of large intestine without perforation or abscess without bleeding; F17.210 Nicotine dependence, cigarettes, uncomplicated
CPT/HCPCS: 36415; 71045; 74177; 80053; 80306; 80320; 81001; 83605; 83690; 83735; 85025; 96361; 96365; 96366; 96375; 96376; 99284; 99285; A9270; G0378; J1170; Q9967; 87086